=== PATIENT | female | born 1960 | race Caucasian/White ===

== ENCOUNTER 2016-12-04 09:16 | Emergency (ER) | payer OTHER ==
[~2016-12-04] VITALS: Ht 170.2 cm; Wt 99.8 kg
[2016-12-04 09:17] VITALS: BP 148/87
[2016-12-04 10:07] LABS: ABSOLUTE NEUTROPHILS 7.2 thou/uL (1.4-8.2); BASOPHILS 0.7 % (0.0-2.0); HEMATOCRIT 41.5 % (37.0-47.0); HEMOGLOBIN 13.3 gm/dL (12.0-15.0); LYMPHOCYTES 22.5 % (24.0-44.0); MCH 26.3 pg (26.0-34.0); MCV 82.4 fL (80.0-100.0); MONOCYTES 5.1 % (1.0-8.0); PLATELET COUNT 325 thou/uL (150-400); POLYS 68.7 % (36.0-66.0); RBC 5.04 mil/uL (4.20-5.00); RDW 16.1 % (10.5-14.5); WBC 10.4 thou/uL (4.0-11.0)
[2016-12-04 10:10] LABS: MANUAL DIFF NO
[2016-12-04 10:14] LABS: ANION GAP 16 mmol/L (7-16); BUN 13 mg/dL (7-18); CALCIUM 9.5 mg/dL (8.5-10.1); CHLORIDE 102 mmol/L (98-107); CO2 23 mmol/L (21-32); CREATININE 1.2 mg/dL (0.6-1.0); GLUCOSE 133 mg/dL (74-106); POTASSIUM 3.7 mmol/L (3.5-5.1); SODIUM 141 mmol/L (136-145)
[2016-12-04 10:18] LABS: ALBUMIN 4.1 g/dL (3.4-5.0); ALKALINE PHOSPHATASE 127 U/L (46-116); DIRECT BILIRUBIN < 0.1 mg/dL (<0.1-0.3); SGOT 59 U/L (15-37); SGPT 47 U/L (30-65); TOTAL BILIRUBIN 0.5 mg/dL (<0.1-1.0); TOTAL PROTEIN 8.2 g/dL (6.4-8.2)
[2016-12-04] MEDS ORDERED: ZOFRAN ODT4 MG PO (10:51)
[2016-12-04] MEDS ORDERED: GABAPENTIN800 M1 PO (11:18)
== END 2016-12-04 11:35 | disposition home or self-care (01) ==
LOC: ER 09:16
PROVIDERS: Emergency Medicine
DX: R11.2 Nausea with vomiting, unspecified (principal); R19.7 Diarrhea, unspecified; R10.9 Unspecified abdominal pain; F17.210 Nicotine dependence, cigarettes, uncomplicated; Z88.0 Allergy status to penicillin

== ENCOUNTER → 2018-05-01 | Outpatient (CLI) | payer OTHER ==
[~2018-05-01] MED LIST: GABAPENTIN800 M1 PO; ZOFRAN ODT4 MG PO
== END ==
LOC: RAD 09:57
DX: S92.422A Displaced fracture of distal phalanx of left great toe, initial encounter for closed fracture (principal); X58.XXXA Exposure to other specified factors, initial encounter; Y93.89 Activity, other specified; Y92.89 Other specified places as the place of occurrence of the external cause; Y99.8 Other external cause status

== ENCOUNTER 2019-11-27 21:23 | Emergency (ER) | payer OTHER ==
[~2019-11-27] VITALS: Ht 172.7 cm; Wt 88.5 kg
[2019-11-27] MEDS ORDERED: TRULICITY1.5 MG/0.5 SUBQ (22:15)
[2019-11-27] MEDS ORDERED: METFORMIN HCL1000 MG PO (22:15)
[2019-11-27] MEDS ORDERED: NEURONTIN800 MG PO (22:16)
[2019-11-27] MEDS ORDERED: WELLBUTRIN XL150 MG PO (22:16)
[2019-11-27] MEDS ORDERED: LEVO-T75 MCG PO (22:16)
[2019-11-27] MEDS ORDERED: CYMBALTA30 MG PO (22:16)
[2019-11-27 22:17] LABS: URINE BILIRUBIN NEGATIVE (Negative); URINE BLOOD NEGATIVE (Negative); URINE CLARITY CLOUDY; URINE GLUCOSE-RANDOM* TRACE (Negative); URINE KETONES TRACE (Negative); URINE LEUKOCYTES-REFLEX NEGATIVE (Negative); URINE NITRITE-REFLEX NEGATIVE (Negative); URINE PROTEIN (DIPSTICK) TRACE (Negative); URINE SPECIFIC GRAVITY >= 1.030 (1.005-1.035); URINE UROBILINOGEN 0.2 E.U./dl (0.2-1.0)
[2019-11-27] MEDS ORDERED: ZESTRIL20 MG PO (22:17)
[2019-11-27] MEDS ORDERED: OMEPRAZOLE20 M2 PO (22:17)
[2019-11-27] MEDS ORDERED: LIPITOR40 MG PO (22:17)
[2019-11-27 22:18] LABS: ABSOLUTE NEUTROPHILS 9.5 thou/uL (1.4-8.2); BASOPHILS 0.5 % (0.0-2.0); EOSINOPHILS 2.3 % (0.0-3.0); HEMATOCRIT 41.6 % (37.0-47.0); HEMOGLOBIN 13.2 gm/dL (12.0-15.0); LYMPHOCYTES 28.8 % (24.0-44.0); MCH 26.4 pg (26.0-34.0); MCHC 31.7 g/dL (28.0-37.0); MCV 83.5 fL (80.0-100.0); MONOCYTES 4.9 % (1.0-8.0); PLATELET COUNT 341 thou/uL (150-400); POLYS 63.5 % (36.0-66.0); RBC 4.98 mil/uL (4.20-5.00); RDW 16.2 % (10.5-14.5); WBC 15.1 thou/uL (4.0-11.0)
[2019-11-27 22:20] LABS: URINE COLOR YELLOW
[2019-11-27 22:23] LABS: CALCIUM 8.7 mg/dL (8.5-10.1); CREATININE 1.9 mg/dL (0.6-1.0); POTASSIUM 3.9 mmol/L (3.5-5.1)
[2019-11-27 22:29] LABS: ALBUMIN 3.9 g/dL (3.4-5.0); TOTAL BILIRUBIN 0.3 mg/dL (<0.1-1.0); TOTAL PROTEIN 7.8 g/dL (6.4-8.2)
[2019-11-28] MEDS ORDERED: ZOFRAN ODT4 MG PO (00:15)
[2019-11-28 00:45] VITALS: BP 110/66
--- NOTE | 2019-11-28 08:14 | EKG ---
[facility] [place] [address] ELECTROCARDIOGRAM REPORT Name: ISABELLE RICHARDS Room #: DEP [facility]#: [id number] Admission: 11/27/19 Attend Phys: Discharge: 11/28/19 Date of : 64 Report #: [id number] THIS REPORT FOR: cc: Chuckie Vargas Brady DO Lundgren, Craig H. MD [facility] THIS REPORT FOR: //name// [facility] ED Test Date: 2019-11-27 Test Time: 22:04:31 Pat Name: ISABELLE GUADARRAMA Department: Room: Gender: F Laboratory Ph[facility]botomist[facility] 1960 Requested By: Nithin Lombardo Order Number: [id number] MD: Orville Saldivar Measurements Intervals [place] Rate: 93 P: 39 [place]: 161 QRS: -52 QRSD: 101 T: 54 QT: 377 QTc: 469 Interpretive Statements Sinus rhythm Abnormal R-wave progression, late transition Inferior infarct, old No previous ECG available for comparison Electronically Signed On 11-28-2019 8:12:49 CDT by Orville Saldivar [email or web address] <ELECTRONICALLY SIGNED> By: Orville Saldivar MD, FAC [id number] 03 03 Orville Saldivar MD, [facility] /EPI
== END 2019-11-28 00:36 | disposition home or self-care (01) ==
LOC: ER 21:23
PROVIDERS: Emergency Medicine
DX: K52.9 Noninfective gastroenteritis and colitis, unspecified (principal); R11.2 Nausea with vomiting, unspecified; E11.9 Type 2 diabetes mellitus without complications; J44.9 Chronic obstructive pulmonary disease, unspecified; F17.210 Nicotine dependence, cigarettes, uncomplicated; Z79.899 Other long term (current) drug therapy; Z88.0 Allergy status to penicillin; Z88.8 Allergy status to other drugs, medicaments and biological substances

== ENCOUNTER 2020-04-20 08:46 | Inpatient (IN) | payer OTHER ==
[~2020-04-20] VITALS: Ht 170.2 cm; Wt 82.6 kg
[2020-04-20] VITALS (11 sets, daily range): BP systolic 98–148; BP diastolic 63–86
[~2020-04-20 08:46] MED LIST changes: +CYMBALTA30 MG PO; +LEVO-T75 MCG PO; +LIPITOR40 MG PO; +METFORMIN HCL1000 MG PO; +NEURONTIN800 MG PO; +OMEPRAZOLE20 M2 PO; +TRULICITY1.5 MG/0.5 SUBQ; +WELLBUTRIN XL150 MG PO; +ZESTRIL20 MG PO
[2020-04-20 09:24] LABS: BASOPHILS 0.6 % (0.0-2.0); EOSINOPHILS 1.5 % (0.0-3.0); HEMATOCRIT 37.4 % (37.0-47.0); HEMOGLOBIN 12.1 gm/dL (12.0-15.0); LYMPHOCYTES 14.2 % (24.0-44.0); MCH 27.2 pg (26.0-34.0); MCHC 32.3 g/dL (28.0-37.0); MCV 84.4 fL (80.0-100.0); MONOCYTES 5.3 % (1.0-8.0); PLATELET COUNT 312 thou/uL (150-400); POLYS 78.4 % (36.0-66.0); RBC 4.44 mil/uL (4.20-5.00); RDW 17.2 % (10.5-14.5); WBC 12.7 thou/uL (4.0-11.0)
[2020-04-20 09:31] LABS: CALCIUM 9.2 mg/dL (8.5-10.1); POTASSIUM 3.9 mmol/L (3.5-5.1)
[2020-04-20 09:40] LABS: ALBUMIN 3.8 g/dL (3.4-5.0); TOTAL BILIRUBIN 0.3 mg/dL (0.2-1.0); TOTAL PROTEIN 7.9 g/dL (6.4-8.2)
[2020-04-20 09:42] LABS: TROPONIN-I 19.44 ng/mL (<0.06)
[2020-04-20 10:05] LABS: CHOLESTEROL 218 mg/dL (<200); HDL CHOLESTEROL 42 mg/dL (>40); TC:HDL 5.2 Ratio (Not establshd); TRIGLYCERIDE 547 mg/dL (<150); VLDL 109 mg/dL (<40)
--- NOTE | 2020-04-20 14:25 | EKG ---
[facility] [place] [address] ELECTROCARDIOGRAM REPORT Name: ISABELLE RICHARDS Room #: 200-I ADM IN M.R.#: [id number] Admission: 04/20/20 Attend Phys: Rick Amador MD, Discharge: Date of : 64 Report #: [id number] THIS REPORT FOR: cc: Chuckie Vargas, Chuckie Luo,Blane MILLARD [facility] ~ THIS REPORT FOR: //name// [facility] ED Test Date: 2020-04-20 Test Time: 08:59:49 Pat Name: ISABELEL GUADARRAMA Department: Room: 200 I Gender: F Jersey Knitter: DONNELL : 1960 Requested By: Rick Amador Order Number: [id number] MD: Blane Ochoa Measurements Intervals [place] Rate: 77 P: 38 VT: 155 QRS: -24 QRSD: 105 T: -17 QT: 446 QTc: 505 Interpretive Statements Sinus rhythm Inferior infarct, recent Lateral leads are also involved Compared to ECG 11/27/2019 22:04:31 No significant changes Electronically Signed On 04-20-2020 14:25:00 CDT by Blane Ochoa [email or web address] <ELECTRONICALLY SIGNED> By: Blane Ochoa MD, FACC 04/20/20 1425 0859 0859 Blane Ochoa MD, [facility] /EPI
--- NOTE | 2020-04-20 16:40 | NUR ---
ASSUMED CARE POST CARDIAC CATH WITH STENT, ALERT X4, NAUSEA AND PAIN TREATED IN FUR MACHINE OPERATOR. VOICES NAUKL STILL HAS PAIN, VSS, RIGHT GROIN SIGHT INTACT. AB ANAHY WITH BATHROOM PRIVILEDGES. ADMISSION COMPLETED. POST CARDIAC VITALS PROTOCOL IN PLACE.HOME MEDS SENT HOME WITH SON DEBBI GUADARRAMA. PT RESTING/SLEEPING. CALL LIGHT AND PERSONAL ITEMS IN REACH.
--- NOTE | 2020-04-20 17:54 | CATHLAB ---
[facility] [place] [address] INVASIVE PROCEDURE REPORT Name: ISABELLE RICHARDS Room #: 200-I ADM IN M.R.#: [id number] Admission: 04/20/20 Attend Phys: Rick Amador MD, Discharge: Date of : 64 Report #: [id number] THIS REPORT FOR: cc: Chuckie Vargas Brady DO Mancuso, Gerald M. MD [facility] ~ APPROVED REPORT Study performed: 04/20/2020 09:33:49 Patient Details Patient Status: ED Room #: The patient is a 60 year-old female Event Personnel Rick Amador Grader Tender, Kelly Hickman RN RN, Monique Otto RTR, Sergio Butcher Roberta Monitor Procedures Performed Art Access - R femoral artery* Left Heart Cath w/or w/o Coronaries 2479333 [facility] EMY Revasc AMI Total/Sub Single RCA C9606 AMIREVSING Hemostasis w/ Mynx 78942 Initial Mod Sed Same Phys/QHP Gr5y 367139 28937 Mod Sed Same Phys/QHP Ea 497708 Indication Chest pain Procedure Narrative The Right Groin^ was infiltrated with 1% Lidocaine subcutaneous anesthesia. A PINNACLE 6FR Sheath #[id number] sheath was inserted into the RFA 6F^. Coronary angiography was performed using coronary diagnostic catheters. The right coronary system was accessed and visualized with a JR4 catheter. The left coronary system was accessed and visualized with a JL4 catheter. The left ventricle was accessed and visualized with a STR PIG catheter. Left ventriculogram was performed in 30 degree projection. There was no hematoma. Intraoperative Conscious Sedation Sedation start time: 935 Case end Time: 102 Fentanyl 50 mcg Versed 1 mg Fluoro Time: 5.30 minutes [facility] [address] [place] [address] INVASIVE PROCEDURE REPORT Name: YUNIOR GUADARRAMAISABELLE Room #: 200-I [facility] IN ..#: [id number] Admission: 04/20/20 Attend Phys: Rick Amador, Discharge: Date of : 64 Report #: [id number] Dose: DAP 71024.00 cGycm2 1766 mGy Contrast Type and Amount: Visipaque 135 ml Hemodynamics The aortic pressure is 146/84 mmHg with a mean of 52 mmHg. The left ventricular pressure is 143/15 mmHg with a mean of mmHg. The left ventricular end diastolic pressure is 15 mmHg. PCI Technique Lesion Percutaneous coronary intervention was performed on the mid right coronary artery. A PINNACLE 6FR Sheath #[id number] Guide Catheter was used to engage the RCA ostium. A Luge Wire .014 x 182CM #[id number] Interventional Guidewire was used to cross the lesion. BALLOON DILATION A Balloon catheter Sprinter OTW 2.25 x 12 #[id number] was inserted and inflated up to 10.00atm for 22seconds. Additional Inflation: 10.00atm for 22seconds. Additional Inflation: 14.00atm for 19seconds. ADDL. INFRASTRUCTURE ADMINISTRATOR 14 RADHA FOR 15 SEC/MIN STENT DEPLOYMENT A stent RESOLUTE CARMEL OTW 2.5 X 22 #[id number] was inserted and inflated up to 18.00atm for 29seconds. Conclusion #1. Successful PTCA stent of an occluded mid right coronary artery acute infarct vessel. Placement of a 2.5 x 22 resolute drug-eluting stent postdilated 2.6 mm ANTWAN grade III flow moderately diseased PDA STEPHANIE. #2 left main free of disease giving rise to LAD and circumflex #3 LAD with mild irregularities relatively small in caliber type I this extends to the apex no occlusive disease #4 circumflex OM nondominant with moderate distribution also relatively small caliber but no occlusive disease #5 normal left jugular size with the inferior base to mid inferior wall akinetic ejection fraction 40 to 45%. Suspect some stunning hope for some recovery post judaism of flow. Recommendations and plan: Continue aggressive risk factor modification. Dual antiplatelet therapy has been initiated. Patient to the CCU to follow post coronary stent protocol/STEMI protocol hemodynamically stable. <ELECTRONICALLY SIGNED> By: Rick Amador MD, FACC 04/20/201752 52 52 Rick Amador MD, FACC /INF
[2020-04-20] MEDS ORDERED: TRAZODONE HCL100 MG PO (20:24)
[2020-04-21] VITALS (7 sets, daily range): BP systolic 90–109; BP diastolic 43–66
[2020-04-21 02:06] LABS: GLYCOHEMOGLOBIN (HGB A1C) 7.6 % (4.8-5.6)
[2020-04-21 04:56] LABS: CALCIUM 8.3 mg/dL (8.5-10.1); CREATININE 1.1 mg/dL (0.6-1.0); POTASSIUM 3.4 mmol/L (3.5-5.1); TOTAL BILIRUBIN 0.4 mg/dL (0.2-1.0); TOTAL PROTEIN 6.3 g/dL (6.4-8.2)
[2020-04-21 04:57] LABS: TROPONIN-I 82.41 ng/mL (<0.06)
[2020-04-21 05:06] LABS: HEMOGLOBIN 10.7 gm/dL (12.0-15.0); MCH 27.3 pg (26.0-34.0); MCHC 32.5 g/dL (28.0-37.0); RBC 3.92 mil/uL (4.20-5.00); RDW 17.6 % (10.5-14.5); WBC 9.2 thou/uL (4.0-11.0)
--- NOTE | 2020-04-21 05:57 | NUR ---
PT S/P CARDIAC CATH. CARE ASSUMED 1899. A0 X4. R GROIN SITE CLEAN DRY AND INTACT. SECOND DOSE OF INTEGRILIN INFUSED OVERNIGHT. REPORTED MILD LEFT SHOULDER PAIN, COMFORTABLE WITH NONE PHARMACOLOGICAL INTERVENTIONS. DR MUHAMMAD NOTIFIED ABOUT PTS HOME MEDICATIONS , BUT NOT ORDERS TO RESUMED THEM GIVEN. STATED THAT PATIENT WILL BE SEEN THIS MORNING. NO OTHER CONCERNS . REMAINS SR ON THE MONITOR.
--- NOTE | 2020-04-21 07:35 | EKG ---
[facility] [place] [address] ELECTROCARDIOGRAM REPORT Name: ISABELLE RICHARDS Room #: 200-I ADM IN M.R.#: [id number] Admission: 04/20/20 Attend Phys: Rick Amador MD, Discharge: Date of : 64 Report #: [id number] THIS REPORT FOR: cc: Chuckie Vargas Brady DO Santiago,Blane MILLARD 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: SBANUM : 1960 Requested By: Johanna Thomas Order Number: [id number] MD: Blane Ochoa Measurements Intervals [place] Rate: 76 P: 60 [place]: 165 QRS: -52 QRSD: 108 T: -50 QT: 481 QTc: 542 Interpretive Statements Sinus rhythm Abnormal R-wave progression, early transition Inferior infarct, recent Prolonged QT interval Compared to ECG 04/20/2020 08:59:49 Prolonged QT interval now present Myocardial infarct finding still present Electronically Signed On 04-21-2020 7:35:12 CDT by Blane Ochoa [email or web address] <ELECTRONICALLY SIGNED> By: Blane Ochoa MD, FACC 04/21/2035 2 2 Blane Ochoa MD, FACC /EPI
[2020-04-21 09:55] LABS: CALCIUM 8.5 mg/dL (8.5-10.1); POTASSIUM 3.6 mmol/L (3.5-5.1)
[2020-04-21 10:01] LABS: ALBUMIN 3.1 g/dL (3.4-5.0); TOTAL BILIRUBIN 0.4 mg/dL (0.2-1.0); TOTAL PROTEIN 6.1 g/dL (6.4-8.2)
--- NOTE | 2020-04-21 13:06 | 2DMMODE ---
[facility] [place] [address] 2 D/M-MODE ECHOCARDIOGRAM Name: ISABELLE RICHARDS Room #: 200-I ADM IN M.R.#: [id number] Admission: 04/20/20 Attend Phys: Rick Amador MD, Discharge: Date of : 64 Report #: [id number] THIS REPORT FOR: cc: Chuckie Vargas Brady DO Lundgren,Orville Abad MD [facility] ~ APPROVED REPORT Study performed: 04/21/2020 12:18:27 EXAM: Comprehensive 2D, Doppler, and color-flow Echocardiogram Patient Location: Bedside Room #: 200 Status: routine BSA: 1.94 HR: 77 bpm BP: 93/43 mmHg Rhythm: NSR Other Information Study Quality: Good Indications STEMI. S/P PCI. Hx: COPD, DM, HTN. 2D Dimensions RVDd: 34.46 mm IVSd: 9.99 (7-11mm) LVOT Diam: 18.59 (18-24mm) LVDd: 53.59 mm PWd: 10.31 (7-11mm) LVDs: 43.63 (25-40mm) Aortic Root: 30.81 mm Volumes Left Atrial Volume (Systole) Single Plane 4CH: 45.47 mL Single Plane 2CH: 52.03 mL LA ESV Index: 27.00 mL/m2 Aortic Valve AoV Peak Vadim.: 1.43 m/s AO Peak Gr.: 8.21 mmHg LVOT Max P.56 mmHg LVOT Max V: 1.07 m/s DANN Vmax: 2.02 cm2 [facility] [email or web address] [address] 2 D/M-MODE ECHOCARDIOGRAM Name: ISABELLE RICHARDS Room #: 200-I [facility] IN ..#: [id number] Admission: 04/20/20 Attend Phys: Rick Amador, Discharge: Date of : 64 Report #: [id number] Mitral Valve E/A Ratio: 0.8 MV Decel. Time: 151.29 ms MV E Max Vadim.: 0.79 m/s MV A Vadim.: 0.93 m/s MV PHT: 43.87 ms IVRT: 86.51 ms Pulmonary Valve PV Peak Vadim.: 1.08 m/s PV Peak Gr.: 4.65 mmHg Pulmonary Vein P Vein S: 0.59 m/s P Vein D: 0.35 m/s P Vein S/D Ratio: 1.69 Tricuspid Valve TR Peak Vadim.: 2.15 m/s RAP Estimate: 10.00 mmHg TR Peak Gr.: 18.47 mmHg PA Pressure: 28.00 mmHg Left Ventricle The left ventricle is normal size. There is normal left ventricular wall thickness. Left ventricular systolic function is mild to moderately decreased. LVEF 40-45%. Inferior wall hypokinesis. Mild diastolic dysfunction Right Ventricle The right ventricle is normal size. The right ventricular systolic function is normal. Atria The left atrium size is normal. The right atrium size is normal. Aortic Valve The aortic valve is normal in structure. No aortic regurgitation is present. There is no aortic valvular stenosis. Mitral Valve The mitral valve is normal in structure. Moderate mitral regurgitation. Tricuspid Valve The tricuspid valve is normal in structure. Trace tricuspid [facility] [address] [place] [address] 2 D/M-MODE ECHOCARDIOGRAM Name: YUNIOR GUADARRAMAISABELLE Room #: 200-I [facility] IN ..#: [id number] Admission: 04/20/20 Attend Phys: Rick Amador, Discharge: Date of : 64 Report #: [id number] regurgitation. Estimated PAP is 25-30mmHg. Pulmonic Valve Pulmonic valve is not well visualized. Great Vessels The aortic root is normal in size. Ascending aorta is not well visualized. IVC is normal in size and collapses <50% with inspiration. Pericardium There is no pericardial effusion. <Conclusion> Left ventricular systolic function is mild to moderately decreased. LVEF 40-45%. Inferior wall hypokinesis. Mild diastolic dysfunction The aortic valve is normal in structure. No aortic regurgitation or stenosis. The mitral valve is normal in structure. Moderate mitral regurgitation. Trace tricuspid regurgitation. Estimated pulmonary artery pressure of 25-30mmHg. There is no pericardial effusion. <ELECTRONICALLY SIGNED> By: Orville Saldivar MD, FACC 04/21/20 1306 05 05 Orville Saldivar MD, [facility] /INF
[2020-04-21] MEDS ORDERED: METOPROLOL SUCC25 M1 PO (13:19)
[2020-04-21] MEDS ORDERED: ASPIRIN325 PO (13:19)
[2020-04-21] MEDS ORDERED: COZAAR 25 MG TA25 M1 PO (13:19)
[2020-04-21] MEDS ORDERED: EFFIENT10 MG PO (13:19)
[2020-04-21] MEDS ORDERED: JARDIANCE10 MG PO (14:09)
--- NOTE | 2020-04-21 16:57 | NUR ---
ASSUMED CARE OF PT AT SHIFT CHANGE. ASSESSMENTS CHARTED. MEDS GIVEN PER SEP. PT A&OX4, NO C/O PAIN OR SOA. DISCHARGE ORDERS AND INSTRUCTIONS COMPLETE. TELE AND IV DC'D. THIS NURSE TOOK PT TO FRONT ENTRANCE TO SON WAITING IN CAR.
--- NOTE | 2020-04-22 08:45 | HC ---
[facility] [place] [address] CONSULTATION Name: ISABELLE RICHARDS Room #: 200-I [facility] IN .R.#: [id number] Admission: 04/20/20 Attend Phys: Rick Amador MD, Discharge: 04/21/20 Date of : 64 Report #: [id number] THIS REPORT FOR: cc: Chuckie Vargas Brady DO Al-Mubaslat, Ahmad MD ~ DATE OF SERVICE: 04/21/2020 ENDOCRINE CONSULTATION NOTE CONSULTING PHYSICIAN: Dr. Amador. REASON FOR CONSULTATION: Type 2 diabetes mellitus. HISTORY OF PRESENT ILLNESS: This is a 60-year-old female patient whose medical background is significant for type 2 diabetes mellitus, hypertension and hyperlipidemia in addition to hypothyroidism. The patient was admitted due to chest pain starting shortly before presentation. She was admitted for further care and monitoring and was found to have an STEMI and underwent the placement of a Resolute stent to her proximal RCA. On further questioning, the patient explains that she has had type 2 diabetes mellitus for over 10 years. She has been most recently maintained on a combination of Trulicity ____ mg weekly in addition to metformin 1000 mg b.i.d. She does note that she has had significant therapeutic gaps due to insurance difficulties and drug coverage limitations. Blood glucose values have mostly run from the low 200s to the high 100s without issues of hypoglycemia. The patient is not aware of difficulties pertaining to diabetic retinopathy or nephropathy, but has had intermittent difficulties with peripheral diabetic neuropathy affecting her feet. She has not had documented CAD prior to this presentation. Also, she is hypothyroid and is maintained on levothyroxine 75 mcg daily. She is hypertensive and is maintained on lisinopril 20 mg daily and is hyperlipidemic and is maintained on Lipitor 40 mg at bedtime. REVIEW OF SYSTEMS: CONSTITUTIONAL: Negative for major issues with fatigue, tiredness, body weight changes, fever or chills. HEENT: Negative for sore throat, sinus pain or ear drainage. PULMONARY: Negative for shortness of breath, cough or hemoptysis. CARDIAC: Noted for chest pain prior to presentation. Intermittent palpitations, but not syncope. GASTROINTESTINAL: Negative for abdominal pain, nausea, vomiting or changes in bowel movement frequency. [address] [address] CONSULTATION Name: ISABELLE RICHARDS Room #: 200-I [facility] IN .R.#: [id number] Admission: 04/20/20 Attend Phys: Rick Amador MD, Discharge: 04/21/20 Date of : 64 Report #: [id number] NEUROLOGY: Negative for loss of consciousness, severe frequent headaches or seizure activity, but noted for baseline difficulties with peripheral neuropathy affecting her feet. Otherwise, her review of systems is noncontributory unless mentioned in HPI. PAST MEDICAL HISTORY: 1. Type 2 diabetes mellitus. 2. Peripheral diabetic neuropathy. 3. Hypothyroidism. 4. Hypertension. 5. Hyperlipidemia. 6. COPD. 7. CAD. CURRENT MEDICATIONS: Metformin 1000 mg b.i.d., Trulicity ____ mg weekly, levothyroxine 75 mcg daily, Cymbalta 90 mg daily, Wellbutrin XL 450 mg daily, gabapentin 1600 mg p.o. b.i.d., omeprazole 20 mg daily, atorvastatin 40 mg at bedtime and lisinopril 20 mg daily. DRUG ALLERGIES: NORTRIPTYLINE and PENICILLIN. FAMILY HISTORY: Noted for CAD. SOCIAL HISTORY: The patient smokes 1 to 1-1/2 packs per day, but denies use of alcohol or illicit drugs. PHYSICAL EXAMINATION: GENERAL: Pleasant female patient who is not in apparent pain or distress. VITAL SIGNS: Blood pressure is 93/43 mmHg, heart rate is 77 beats per minute, respiration 20 per minute, temperature 37.1 degrees Celsius. CONSTITUTIONAL: She is sitting upright in bed, appears comfortable, not in apparent distress. HEENT: Anicteric sclerae. Intact extraocular motions. NECK: Supple, without JVD, carotid bruits or lymphadenopathy. I do not appreciate thyromegaly. CHEST: Noted for good air entry bilaterally with scattered rales. No wheeze or crackles. HEART: Regular rate and rhythm without murmurs or gallops. ABDOMEN: Soft, lax. No guarding. Active bowel sounds. EXTREMITIES: Lower extremity exam, trace ankle edema. Diminished sensation to light touch. NEUROLOGIC: Awake, alert and oriented to time, place and person. The remainder of her examination is nonfocal other than for peripheral sensory deficits. PSYCHIATRIC: Pleasant, interactive. Normal mood and affect. Normal thought process. [address] [address] CONSULTATION Name: ISABELLE RICHARDS Room #: 200-I DIS IN M.R.#: [id number] Admission: 04/20/20 Attend Phys: Rick Amador MD, Discharge: 04/21/20 Date of : 64 Report #: [id number] LABORATORY RESULTS: Blood glucose values were reviewed since her presentation and ranged from 223-151 mg/dL. Sodium 142, potassium 3.6, chloride 105, CO2 of 26, anion gap 11, BUN 13, creatinine 1.0, lipase 213. Total bilirubin 0.4, calcium 8.5, alkaline phosphatase 96, ALT 60, total protein 6.1, albumin 3.1, EGFR 57. Troponin ____. Total cholesterol 218, triglycerides 547, HDL 42, LDL cannot be calculated. White blood count 9.2, hemoglobin 10.7, hematocrit 33, platelets 231. Hemoglobin A1c is 7.6. ASSESSMENT AND PLAN: 1. Type 2 diabetes mellitus. The patient was counseled at length about the pathogenesis of type 2 diabetes mellitus and its major contribution to cardiovascular disease including her current issues with coronary artery disease. I stressed the importance of achieving and maintaining adequate glycemic control going forward towards reducing her cardiovascular risk. I believe that a valuable addition to have regimen would be that of an SGLT2 inhibitor in particular, Jardiance, so as to decrease risk for future cardiovascular and coronary artery disease events. Her current hemoglobin A1c indicates that she is off target and I believe the addition of Jardiance should hopefully places a goal seamlessly in the future. In the immediate setting, the patient is within reasonable target control for the inpatient setting, which is typically between 100 and 180 mg/dL utilizing only Humalog supplemental scale. I would like to continue with the same, pending her expected discharge tomorrow morning. I stressed the importance of drug intake consistency for optimal results, which the patient understands well. 2. Hyperlipidemia. The patient has mixed hyperlipidemia and is currently on high dose atorvastatin therapy. It is noted that she has severe dyslipidemia with triglycerides above 500 mg/dL. I will add fenofibrate 160 mg daily to her regimen for her to maintain on her discharge from the hospital. 3. Hypertension. The patient's level of blood pressure control is adequate, she is to continue with the current regimen. 4. Coronary artery disease. The patient had ST-elevation myocardial infarction and ended up with a stent placement in her proximal right coronary artery. Again, I stressed the importance of optimizing her blood pressure, blood cholesterol and blood glucose control and the use of agents associated with reduced CVD, negative outcome and she expressed her understanding of these points. I certainly appreciate this consultation by Dr. Amador. <ELECTRONICALLY SIGNED> By: Keith Valle MD 04/22/20 0845 1026 1124 Keith Valle MD /nt
== END 2020-04-21 17:01 | disposition home or self-care (01) | DRG 246 ==
LOC: ER 08:46 → 2N 09:20 → TBACV 09:51 → 2N 09:51
PROVIDERS: Emergency Medicine; Nurse Practitioner Adult Health; ADMIT Internal Medicine Cardiovascular Disease; ATTEND Internal Medicine Cardiovascular Disease
PROC: 027034Z Dilation of Coronary Artery, One Artery with Drug-eluting Intraluminal Device, Percutaneous Approach (ICD-10-PCS; principal; 2020-04-20)
PROC: B215YZZ Fluoroscopy of Left Heart using Other Contrast (ICD-10-PCS; principal; 2020-04-20)
PROC: B211YZZ Fluoroscopy of Multiple Coronary Arteries using Other Contrast (ICD-10-PCS; principal; 2020-04-20)
PROC: 4A023N7 Measurement of Cardiac Sampling and Pressure, Left Heart, Percutaneous Approach (ICD-10-PCS; principal; 2020-04-20)
DX: I21.3 ST elevation (STEMI) myocardial infarction of unspecified site (principal); I50.31 Acute diastolic (congestive) heart failure; J44.9 Chronic obstructive pulmonary disease, unspecified; F17.210 Nicotine dependence, cigarettes, uncomplicated; E78.00 Pure hypercholesterolemia, unspecified; E11.42 Type 2 diabetes mellitus with diabetic polyneuropathy; I25.10 Atherosclerotic heart disease of native coronary artery without angina pectoris; E78.1 Pure hyperglyceridemia; E78.5 Hyperlipidemia, unspecified; Z88.0 Allergy status to penicillin; Z82.49 Family history of ischemic heart disease and other diseases of the circulatory system; Z83.3 Family history of diabetes mellitus; Z88.8 Allergy status to other drugs, medicaments and biological substances; Z71.6 Tobacco abuse counseling; Z79.899 Other long term (current) drug therapy; I11.0 Hypertensive heart disease with heart failure
CPT/HCPCS: 10081

== ENCOUNTER 2020-08-15 17:13 | Emergency (ER) | payer OTHER ==
[~2020-08-15] VITALS: Ht 172.7 cm; Wt 83.9 kg
[~2020-08-15 17:13] MED LIST changes: +ASPIRIN325 PO; +COZAAR 25 MG TA25 M1 PO; +EFFIENT10 MG PO; +JARDIANCE10 MG PO; +METOPROLOL SUCC25 M1 PO; +TRAZODONE HCL100 MG PO
[2020-08-15 18:09] LABS: ABSOLUTE NEUTROPHILS 11.5 thou/uL (1.4-8.2); BASOPHILS 0.4 % (0.0-2.0); EOSINOPHILS 0.7 % (0.0-3.0); HEMATOCRIT 29.5 % (37.0-47.0); HEMOGLOBIN 9.5 gm/dL (12.0-15.0); LYMPHOCYTES 6.5 % (24.0-44.0); MCH 25.7 pg (26.0-34.0); MCV 80.2 fL (80.0-100.0); PLATELET COUNT 311 thou/uL (150-400); POLYS 86.4 % (36.0-66.0); RBC 3.68 mil/uL (4.20-5.00); RDW 18.9 % (10.5-14.5); WBC 13.3 thou/uL (4.0-11.0)
[2020-08-15 18:21] LABS: ANION GAP 13 mmol/L (7-16); BUN 10 mg/dL (7-18); CALCIUM 8.9 mg/dL (8.5-10.1); CHLORIDE 96 mmol/L (98-107); CO2 23 mmol/L (21-32); CREATININE 1.2 mg/dL (0.6-1.0); GLUCOSE 199 mg/dL (74-106); POTASSIUM 3.5 mmol/L (3.5-5.1); SODIUM 132 mmol/L (136-145)
[2020-08-15 18:31] LABS: ALBUMIN 3.1 g/dL (3.4-5.0); SGOT 24 U/L (15-37); SGPT 41 U/L (30-65); TOTAL BILIRUBIN 1.5 mg/dL (0.2-1.0); TOTAL PROTEIN 7.3 g/dL (6.4-8.2); TROPONIN-I <0.06 ng/mL (<0.06)
[2020-08-15 18:35] LABS: ANISOCYTOSIS 2+; MICROCYTES 1+
[2020-08-15] MEDS ORDERED: PROAIR HFA8.5 GM INH (20:54)
[2020-08-15] MEDS ORDERED: LEVOFLOXACIN750 MG PO (20:54)
[2020-08-15] MEDS ORDERED: PREDNISONE 20 M20 MG PO (20:54)
[2020-08-15 21:13] VITALS: BP 138/86
--- NOTE | 2020-08-17 07:25 | EKG ---
[place] [address] [facility] [place] [address] ELECTROCARDIOGRAM REPORT Name: ISABELLE RICHARDS [facility] [id number] Admission: 08/15/20 Attend Phys: Discharge: 08/15/20 Date of : 64 Report #: [id number] 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 : 1960 Requested By: Hemant Davis Order Number: [id number] MD: Blane Ochoa Measurements Intervals [place] Rate: 99 P: 43 NC: 146 QRS: -16 QRSD: 99 T: -30 QT: 389 QTc: 500 Interpretive Statements Sinus rhythm Inferior infarct, age indeterminate Compared to ECG 04/21/2020 07:03:04 Prolonged QT interval no longer present Myocardial infarct finding still present Electronically Signed On 08-17-2020 7:25:35 TUFTER HAND by Blane Ochoa [email or web address] <ELECTRONICALLY SIGNED> By: Blane Ochoa MD, [facility] 08/17/20 0725 09 09 Blane Ochoa MD, FACC /EPI
== END 2020-08-15 21:10 | disposition home or self-care (01) ==
LOC: ER 17:13
PROVIDERS: Physician Assistant
DX: J18.9 Pneumonia, unspecified organism (principal); J44.1 Chronic obstructive pulmonary disease with (acute) exacerbation; E11.9 Type 2 diabetes mellitus without complications; F17.210 Nicotine dependence, cigarettes, uncomplicated; Z79.82 Long term (current) use of aspirin; Z79.899 Other long term (current) drug therapy; Z88.0 Allergy status to penicillin; Z88.8 Allergy status to other drugs, medicaments and biological substances

== ENCOUNTER 2020-10-10 18:02 | Emergency (ER) | payer OTHER ==
[~2020-10-10] VITALS: Ht 172.7 cm; Wt 82.1 kg
[~2020-10-10 18:02] MED LIST changes: +LEVOFLOXACIN750 MG PO; +PREDNISONE 20 M20 MG PO; +PROAIR HFA8.5 GM INH
[2020-10-10 18:09] VITALS: BP 166/104
[2020-10-10] MEDS ORDERED: TYLENOL325 M1 PO (18:30)
[2020-10-10] MEDS ORDERED: IBUPROFEN 400400 M2 PO (18:30)
== END 2020-10-10 18:44 | disposition home or self-care (01) ==
LOC: ER 18:02
DX: E11.42 Type 2 diabetes mellitus with diabetic polyneuropathy (principal); I10 Essential (primary) hypertension; J44.9 Chronic obstructive pulmonary disease, unspecified; E78.5 Hyperlipidemia, unspecified; F17.210 Nicotine dependence, cigarettes, uncomplicated; Z79.82 Long term (current) use of aspirin; Z79.1 Long term (current) use of non-steroidal anti-inflammatories (NSAID); Z79.899 Other long term (current) drug therapy; Z88.0 Allergy status to penicillin; Z88.1 Allergy status to other antibiotic agents

== ENCOUNTER → 2020-10-14 | Outpatient (CLI) | payer OTHER ==
[~2020-10-14] MED LIST changes: +IBUPROFEN 400400 M2 PO; +TYLENOL325 M1 PO
== END ==
LOC: SJCVC 13:20
PROVIDERS: ATTEND Internal Medicine Cardiovascular Disease
DX: R94.31 Abnormal electrocardiogram [ECG] [EKG] (principal); I25.10 Atherosclerotic heart disease of native coronary artery without angina pectoris; E78.00 Pure hypercholesterolemia, unspecified; I25.2 Old myocardial infarction; E11.9 Type 2 diabetes mellitus without complications; I42.9 Cardiomyopathy, unspecified; I10 Essential (primary) hypertension; E78.1 Pure hyperglyceridemia; E78.5 Hyperlipidemia, unspecified; F17.210 Nicotine dependence, cigarettes, uncomplicated; Z95.5 Presence of coronary angioplasty implant and graft; Z98.890 Other specified postprocedural states; Z88.0 Allergy status to penicillin; Z88.8 Allergy status to other drugs, medicaments and biological substances; Z79.82 Long term (current) use of aspirin; Z79.84 Long term (current) use of oral hypoglycemic drugs; Z79.899 Other long term (current) drug therapy; Z82.49 Family history of ischemic heart disease and other diseases of the circulatory system

== ENCOUNTER 2021-01-22 12:24 | Emergency (ER) | payer OTHER ==
[~2021-01-22] VITALS: Ht 170.2 cm; Wt 86.2 kg
[2021-01-22 12:38] VITALS: BP 112/66
[2021-01-22] MEDS ORDERED: VICTOZA0.6 MG/0.1 SUBQ (12:46)
[2021-01-22 14:01] LABS: ABSOLUTE NEUTROPHILS 5.3 thou/uL (1.4-8.2); BASOPHILS 0.5 % (0.0-2.0); EOSINOPHILS 2.7 % (0.0-3.0); HEMATOCRIT 31.9 % (37.0-47.0); HEMOGLOBIN 10.2 gm/dL (12.0-15.0); LYMPHOCYTES 17.9 % (24.0-44.0); MCH 25.1 pg (26.0-34.0); MCV 78.5 fL (80.0-100.0); MONOCYTES 6.3 % (1.0-8.0); PLATELET COUNT 364 thou/uL (150-400); POLYS 72.6 % (36.0-66.0); RBC 4.06 mil/uL (4.20-5.00); RDW 19.1 % (10.5-14.5); WBC 7.3 thou/uL (4.0-11.0)
[2021-01-22 14:06] LABS: CALCIUM 9.1 mg/dL (8.5-10.1); CREATININE 1.3 mg/dL (0.6-1.0); POTASSIUM 3.7 mmol/L (3.5-5.1)
[2021-01-22 14:46] LABS: ANISOCYTOSIS 2+; PLATELET ESTIMATE NORMAL
[2021-01-22] MEDS ORDERED: ZPAK PO (15:23)
[2021-01-22] MEDS ORDERED: ZOFRAN ODT4 MG PO (15:24)
--- NOTE | 2021-01-24 14:17 | EKG ---
[place] [address] [place] [address] ELECTROCARDIOGRAM REPORT Name: ISABELLE RICHARDS Room #: [facility]P [facility] [id number] Admission: 01/22/21 Attend Phys: Discharge: 01/22/21 Date of : 64 Report #: [id number] [facility] ED Test Date: 2021-01-22 Test Time: 12:30:57 Pat Name: ISABELLE GUADARRAMA Department: Room: Gender: F Network Relay Tester: unknown : 1960 Requested By: Ekaterina Espinoza Order Number: [id number] MD: Orville Saldivar Measurements Intervals [place] Rate: 89 P: 43 OR: 146 QRS: -16 QRSD: 105 T: -16 QT: 437 QTc: 532 Interpretive Statements Sinus rhythm Inferior infarct, old Prolonged QT interval Compared to ECG 08/15/2020 18:10:34 Prolonged QT interval now present Myocardial infarct finding still present Electronically Signed On 01-24-2021 14:17:01 CDT by Orville Saldivar [email or web address] <ELECTRONICALLY SIGNED> By: Orville Saldivar MD, [facility] 01/24/21 1417 1230 1230 Orville Saldivar MD, FACC /EPI
== END 2021-01-22 15:35 | disposition home or self-care (01) ==
LOC: ER 12:24
PROVIDERS: Emergency Medicine
DX: J18.8 Other pneumonia, unspecified organism (principal); F17.210 Nicotine dependence, cigarettes, uncomplicated; E11.9 Type 2 diabetes mellitus without complications; Z20.822 Contact with and (suspected) exposure to COVID-19; Z88.0 Allergy status to penicillin; Z88.8 Allergy status to other drugs, medicaments and biological substances; Z79.84 Long term (current) use of oral hypoglycemic drugs; Z79.899 Other long term (current) drug therapy